=== PATIENT | male | born 1935 | race Two or more races ===

== ENCOUNTER 2017-12-24 22:47 | Inpatient (IN) | payer OTHER ==
[~2017-12-24] VITALS: Ht 172.7 cm; Wt 77.1 kg
[~2017-12-24 22:47] MED LIST: ASA81 MG PO; ATACAND32 MG PO; COREG CR20 MG; COUMADIN2.5 MG PO; ELIQUIS2.5 MG; LASIX40 MG; LISINOPRIL2.5 MG; SIMVASTATIN10 MG; SINVASTATIN 20MG; TOPROL XL25 MG PO
== END 2017-12-30 12:22 | disposition expired | DRG 871 ==
LOC: ER 22:47 → ICU-2 12-25 13:18
PROC: B246ZZZ Ultrasonography of Right and Left Heart (ICD-10-PCS; principal; 2017-12-25)
PROC: 3E0F7GC Introduction of Other Therapeutic Substance into Respiratory Tract, Via Natural or Artificial Opening (ICD-10-PCS; 2017-12-25)
PROC: BW40ZZZ Ultrasonography of Abdomen (ICD-10-PCS; 2017-12-26)
PROC: 4A033R1 Measurement of Arterial Saturation, Peripheral, Percutaneous Approach (ICD-10-PCS; 2017-12-27)
PROC: 02HV33Z Insertion of Infusion Device into Superior Vena Cava, Percutaneous Approach (ICD-10-PCS; 2017-12-27)
PROC: 5A09457 Assistance with Respiratory Ventilation, 24-96 Consecutive Hours, Continuous Positive Airway Pressure (ICD-10-PCS; 2017-12-28)
DX: A41.9 Sepsis, unspecified organism (principal); I50.23 Acute on chronic systolic (congestive) heart failure; R65.21 Severe sepsis with septic shock; J18.1 Lobar pneumonia, unspecified organism; J96.01 Acute respiratory failure with hypoxia; I13.0 Hypertensive heart and chronic kidney disease with heart failure and stage 1 through stage 4 chronic kidney disease, or unspecified chronic kidney disease; N18.4 Chronic kidney disease, stage 4 (severe); N17.8 Other acute kidney failure; J91.8 Pleural effusion in other conditions classified elsewhere; E27.49 Other adrenocortical insufficiency; I48.0 Paroxysmal atrial fibrillation; Z95.810 Presence of automatic (implantable) cardiac defibrillator; D63.1 Anemia in chronic kidney disease; I34.0 Nonrheumatic mitral (valve) insufficiency; I27.29 Other secondary pulmonary hypertension